=== PATIENT | female | born 1985 | race Caucasian/White ===

== ENCOUNTER → 2017-01-20 | Outpatient (CLI) | payer OTHER ==
--- NOTE | 2017-01-20 15:31 | DI ---
US OB LESS THAN 14 WEEKS, US OB TRANSVAGINAL,01/20/2017 1:58 PM: Clinical History: Established gestational age. Previous Exam: None at this facility. Findings: Multiple transabdominal and endovaginal grayscale and color Doppler sonographic images are obtained t hrough the pelvis, and demonstrate a single gestational sac containing a single pole measuring 5 mm and corresponding with an estimated gestational age of 6 weeks 2 days. There are no detectable Doppler heart tones. The yolk sac is normal. The right ovary is normal measuring 5.4 x 2.4 x 3.3 cm with a small simple cyst. The left ovary measures 3.2 x 1.4 x 1.8 centimeters with normal Doppler flow. Impression: Single pole without detectable Doppler heart tones. This measures an estimated gestational age of 6 weeks 2 days, which does not correlate with patient's estimated gestational age by last menstrua l period. There is an outside chance that this could be secondary to extreme early gestational age. C orrelate with beta hCG levels. Note: There was a single image which appeared to demonstrate detected Doppler heart tones of 183 beat s per minute, but this was artifactual. There were no detectable Doppler heart tones.
== END ==
LOC: US 13:53
PROVIDERS: ATTEND Family Medicine
DX: Z36 Encounter for antenatal screening of mother (principal)
CPT/HCPCS: 76801; 76817

== ENCOUNTER → 2017-01-21 | Outpatient (CLI) | payer OTHER | LOC: LAB 09:08 | PROVIDERS: ATTEND Family Medicine | DX: O03.9 Complete or unspecified spontaneous abortion without complication (principal) | CPT/HCPCS: 36415; 84702 ==

== ENCOUNTER → 2017-01-23 | Outpatient (CLI) | payer OTHER | LOC: LAB 08:56 | PROVIDERS: ATTEND Family Medicine | DX: O03.9 Complete or unspecified spontaneous abortion without complication (principal) | CPT/HCPCS: 36415; 84702 ==

== ENCOUNTER 2017-01-26 06:54 | Day surgery (SDC) | payer OTHER ==
[~2017-01-26 06:54] MED LIST: LIDOCAINE W/ SODIUM BICARB 0.5 ML SYR ONE; Lactated Ringers 1,000 ML PRIMARY IV ONE
[2017-01-26] MEDS ORDERED: fentaNYL Inj 100 MCG/2 ML VIAL ONE (07:05)
[2017-01-26] MEDS ORDERED: MIDAZOLAM 5 MG/1 ML ONE (07:05)
[2017-01-26] MEDS ORDERED: LIDOCAINE MPF 2% - 5 ML (20 MG/1 ML) ONE (07:43)
[2017-01-26] MEDS ORDERED: SCOPOLAMINE HYDROBROMIDE 1.5 MG - 1 EACH PATCH TRANSDERM ONE (07:45)
[2017-01-26] MEDS ORDERED: DEXAMETHASONE PF 10 MG/1 ML VIAL ONE (08:01)
[2017-01-26] MEDS ORDERED: ONDANSETRON 4 MG/2 ML VIAL ONE (08:06)
[2017-01-26] MEDS ORDERED: NORMAL SALINE 10 ML SYRINGE FLUSH IVP PRN (08:21)
[2017-01-26] MEDS ORDERED: IBUPROFEN 800 MG TABLET PO PRN (08:21)
[2017-01-26] MEDS ORDERED: KETOROLAC 30 MG/1 ML VIAL ONE (08:25)
--- NOTE | 2017-01-26 08:26 | OB.OP.NOTE ---
Operative Report Surgeon: Brian Anesthesia Type: General Anesthesia Provider: Tamica Mathis CRNA Surgery Date: 01/26/17 Preoperative Diagnosis: Missed AB Postoperative Diagnosis: Same Procedure: Suction D&C Estimated Blood Loss (mL): 600 Fluids: 1000 ml Complications: None Findings at Surgery: Anteverted uterus sounded to 11 cm. Products of conception returned. Good cry noted in all 4 quadrants at the conclusion of the procedure. Indications for the Procedure: 8 week by LMP, six-week by ultrasound missed AB desires suction D&C. Description of Procedure: The patient was taken to the operating room and placed supine where general laryngeal mask anesthesia was administered. She was then placed in lithotomy position in [facility]. Examination under anesthesia was unremarkable. She was prepped and draped in the normal sterile fashion and her bladder was emptied of urine with a straight catheter. A weighted speculum was placed in the vagina and the anterior lip of the cervix was grasped with a single-tooth tenaculum. Uterus was sounded to a depth of 11 cm. The cervix was then dilated with Alexx dilators to #30. A 9 mm curved suction curette was then introduced to the uterine fundus and suction tubing was applied. The vacuum was turned on and several passages of suction curettage were made with passage of POC and clot. Sharp curettage was then performed with good cry noted in all quadrants except the anterior. Several additional passages of suction curettage were then made until no further tissue was returned. Sharp curettage was reperformed with good cry noted in all 4 quadrants. A final passage of suction curettage returned no further blood or products of conception. Good hemostasis was noted from the external os. The tenaculum was removed from the cervix and good hemostasis was noted. There were no complications at surgery and the patient left to recovery in good condition. Plan: Routine postop care and discharge to home.
[2017-01-26] MEDS ORDERED: Methylergonovine Tab 0.2 MG TAB PO SCH (08:30)
[2017-01-26] MEDS ORDERED: Sodium Chloride 0.9% 1,000 ML PRIMARY IV SCH (08:30)
[2017-01-26 10:51] VITALS: TEMP 98.3
[2017-01-26 11:20] VITALS: RESP 16
== END 2017-01-26 10:35 | disposition home or self-care (01) ==
LOC: SDSC 06:54
PROVIDERS: ATTEND Obstetrics & Gynecology
DX: O02.1 Missed abortion (principal); B37.3 Candidiasis of vulva and vagina
CPT/HCPCS: 59812; J1100; J1885; J2001; J2250; J2405; J2704; J3010; J7120